=== PATIENT | male | born 1980 | race Caucasian/White ===

== ENCOUNTER 2025-01-18 11:50 | Outpatient (AMB) | payer OTHER, SELFPAY ==
--- NOTE | 2025-01-18 11:56 | A.PHYSOV ---
Vital Signs 01/18/25 11:57 Height 6 ft 2 in Weight 200 lb BMI 25.7 Intake Visit Reasons: NPV Self Ref- back pain Allergies No Known Allergies Allergy (Verified 01/18/25 12:04) HPI Comments Details: History of Present Illness The patient is a 44-year-old male presenting with lower back pain. He experienced a sudden onset of severe lower back pain while bending over, described as a hot, burning sensation that incapacitated him for two days. An MRI from 2018 revealed annular tears and an osteophyte at L5-S1 encroaching on nerve roots, but no catastrophic findings. The patient reports pain localized to the lower lumbar sacroiliac region, more pronounced on the left side. He denies any tingling or numbness but describes the pain as burning in nature. The patient has had two flare-ups in the last two months, coinciding with his return to competitive tennis. He has been undergoing physical therapy for six weeks, which has provided some relief. His pain level is currently at a 6/10, but it can become severe during flare-ups. The patient uses Tylenol and ibuprofen for pain management but has not taken them recently. He is concerned about re-aggravating his condition due to his active lifestyle. Patient does have a history of von Willebrand's disease. 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 Patient finds that his symptoms limit his ability to perform his activities of daily living. The referring provider's no prior to consultation. Pain Description - Onset: Sudden onset while bending over - Quality: Hot, burning sensation - Location: Lower lumbar sacroiliac region, left greater than right - Exacerbating factors: Physical activity, especially tennis - Relieving factors: Physical therapy - Current pain level: 6/ 10 Results - Imaging: MRI lumbar spine lumbar 09/2024 impression: No significant interval change. Chronic central disc protrusions at L3-4 and L4-5 without neural foraminal impingement. Patient does have annular fissure at L5-S1. [facility] Surgical History (Updated 01/18/25 @ 12:00 by Janessa Bird MA) H/O: knee surgery (~2022) Social History (Updated 01/18/25 @ 12:05 by Janessa Bird MA) Alcohol intake: current Alcohol intake frequency: does not drink Patient Tobacco Use Status: Never used Tobacco Review of Systems Narrative Review of Systems - Musculoskeletal: Reports neuropathic pain in lower lumbar sacroiliac region, denies tingling or numbness - Neurological: Denies tingling or numbness Physical Exam Exam Exam: Physical Exam Lumbar Spine: Examination of his lumbar spine, there is no visible swelling or deformity. He is tender to lower lumbar facets. He is otherwise nontender. Full range spine. With facet loading. Special Tests: Lhermittes sign was negative Heel Toe walk is normal Left straight leg raise: Negative Right straight leg raise: Negative Special tests Norbert test is negative Ganslen's test is negative SI Joint compression test negative Timoteo test negative Piriformis stretch is negative Lower Extremities: Full range of motion bilateral lower extremities. No calf pain or edema. Neuro: Sensation: Intact to lower extremities bilaterally Strength L2 (Psoas): 5/5 on the left and 5/5 on the right. L3 (Quads): 5/5 on the left and 5/5 on the right. L4 (Ant tibialis): 5/5 on the left and 5/5 on the right. L5 (EHL) 5/5 on the left and 5/5 on the right. S1 (Gastroc): 5/5 on the left and 5/5 on the right. DTR L4: (Patellar) Left 2 Right 2 S1: (Achilles) Left 2 Right 2 Babinski Downgoing No pathologic clonus. No involuntary movement. Vital Signs: BMI result Body Mass Index 25.7 Assessment & Plan Assessment & Plan (1) Vertebrogenic low back pain: Code(s): M54.51 - Vertebrogenic low back pain Category: Medical (2) Lumbar spondylosis: Code(s): M47.816 - Spondylosis without myelopathy or radiculopathy, lumbar region Category: Medical Plan Pain Management - Affect: Concern about re-aggravating condition due to active lifestyle - Analgesia: Uses Tylenol and ibuprofen, current pain level 2 to 3 out of 10 - Adverse Effects: None reported - Activities of Daily Living: Pain interferes with tennis and physical activity - Aberrant Drug Related Behaviors: None reported Plan Patient was informed and verbally consented to the use of an ambient scribe for clinic note documentation during this visit. 1. Annular Tears At L5-S1 The plan includes an L5-S1 interlaminar epidural injection to alleviate the annular tear and associated symptoms. The injection is expected to provide relief for three to six months, with the possibility of longer-term benefits. The procedure will be performed under local anesthesia, with precautions taken to minimize risks such as infection and nerve damage. Insurance approval is required, and the procedure will be scheduled once approved. Patient will contact his logistics solution manager to determine if he should take any medication prior to injection. He has failed conservative treatment. He will contact our office we We discussed the benefits of proper nutrition and exercise to maintain a healthy body weight to improve longevity and function. We also discussed the benefits of proper lifting techniques, core strengthening and proper posture. Thank you for allowing me to participate in the care of your patient. Coding Level of Care Code Tele New Pt Level 3 (31591) Diagnoses Vertebrogenic low back pain M54.51 Lumbar spondylosis M47.816
[2025-01-18 11:57] VITALS: BMI 25.7
== END 2025-01-18 12:20 | disposition home or self-care (01) ==
LOC: HO.HPHYS 11:50
PROVIDERS: PCP Internal Medicine; Visit Provider Physician Assistant
DX: M54.51 Vertebrogenic low back pain (principal); M47.816 Spondylosis without myelopathy or radiculopathy, lumbar region
CPT/HCPCS: 99204

== ENCOUNTER 2025-01-25 12:07 | Outpatient (REF) | payer OTHER, SELFPAY ==
--- OUTSIDE RECORDS SUMMARY | 2025-01-25 12:49 | XMS_ITS ---
Author Name [facility] Organization Unknown Encounters Encounter Type Encounter Reason Primary Diagnosis Location Date Ambulatory [facility] 01/14/2023 Care Team Organization Name Specialty Phone Email Start Date End Da te [facility] PCP,No Primary Care 01/14/2023 05/23/2024 [facility] NO PCP Primary Care 01/14/2023 01/14/2023
== END 2025-01-25 12:08 | disposition home or self-care (01) ==
LOC: HO.HPHYSR 12:07
PROVIDERS: PCP Internal Medicine; Visit Provider Physical Medicine & Rehabilitation
DX: M54.16 Radiculopathy, lumbar region (principal)
CPT/HCPCS: 62323; J2003; J3301; Q9967

== ENCOUNTER 2025-01-25 12:07 | Outpatient (AMB) | payer OTHER, SELFPAY ==
[2025-01-25 12:07] VITALS: BP 98/72; PULSE 70; BMI 25.7
--- NOTE | 2025-01-25 12:07 | A.PHYSOV ---
Vital Signs 01/25/25 12:07 Height 6 ft 2 in Weight 200 lb BMI 25.7 BP 98/72 Pulse 70 Intake Visit Reasons: Lumbar Interlaminar Epidural Injection L5-S1 Intake Note: Patient is a 44 year old male in office today L5-S1 interlaminar epidural injection. 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: No Allergies No Known Allergies Allergy (Verified 01/25/25 12:07) [facility] Medical History (Updated 01/25/25 @ 12:26 by Simon Soto DO) Lumbar radiculitis Surgical History H/O: knee surgery (~2022) Social History Alcohol intake: current Alcohol intake frequency: does not drink Patient Tobacco Use Status: Never used Tobacco Current occupational status: employed Physical Exam Vital Signs: Last Vital Signs Pulse 70 01/25/25 12:07 BP 98/72 01/25/25 12:07 BMI result Body Mass Index 25.7 Office Procedures Procedure Details: Procedure performed: L5-S1 lumbar epidural steroid injection Preop diagnosis: Lumbar radiculitis Postop diagnosis: The same After informed consent was obtained patient was brought into the procedure room and placed in the prone position on the procedure table. Skin over the lumbar sacral area was prepped and draped in usual sterile manner. L5-S1 interlaminar space was visualized utilizing fluoroscopy. After skin was anesthetized with 1% lidocaine solution, 3.5 in 20 gauge Toughy needle was introduced percutaneously and advanced toward the epidural space at the indicated level. Loss of resistance technique was utilized. Needle placement was verified utilizing 3 cc of Omnipaque contrast solution. Excellent epidural spread was visualized without evidence of vascular uptake. Total volume of 8 cc containing 2 cc of 1% lidocaine, 40 mg of triamcinolone and normal saline solution were injected after negative aspiration for blood and cerebrospinal fluid. Radiation exposure was documented in the chart. Lumbar Interlaminar Epidural 50216- use with FL Gd order: Lumbar Interlaminar Epidural Steroid Injection 23750 Procedure code (CPT) selection complete Office Meds Kenalog 40 mg/mL suspension for injection Performing Provider: Simon Soto DO Performing Location: [facility] Administered by: Simon Soto DO on 01/25/25 12:26 Dose Route Admin Location Dispensed Lot Number Expiration Date [employer] Senior Infrastructure Engineer 40 mg epidural 1 mL [id number] [employer] Total Dispensed Waste 1 mL 0 % lidocaine (PF) 10 mg/mL (1 %) injection solution Performing Provider: Simon Soto DO Performing [facility] Administered by: Simon Soto DO on 01/25/25 12:26 Dose Route Admin Location Dispensed Lot Number Expiration Date [facility] Senior Infrastructure Engineer 50 mg epidural 5 mL [id number] [facility] Total Dispensed Waste 5 mL 0 % Omnipaque 300 300 mg iodine/mL intravenous solution Performing Provider: Simon Soto DO Performing Location: [facility] Administered by: Simon Soto DO on 01/25/25 12:26 Dose Route Admin Location Dispensed Lot Number Expiration Date [facility] Senior Infrastructure Engineer 3 mL epidural 10 mL [id number] [employer] Total Dispensed Waste 10 mL 70 % Assessment & Plan Assessment & Plan (1) Lumbar radiculitis: Code(s): M54.16 - Radiculopathy, lumbar region Category: Medical Plan: Procedure Plan Procedure Orders: Orders AMB Lumbar Interlaminar Epidural Steroid Injection Today M54.16 - Radiculopathy, lumbar region FL Gd L Spine Interlaminar Inj Today M54.16 - Radiculopathy, lumbar region Coding Level of Care Code Procedure Only Diagnoses Lumbar radiculitis M54.16 CPT Codes Lumbar Interlaminar Epidural Steroid I - 50148 - Lumbar Interlaminar Epidural: Lumbar Interlaminar Epidural Steroid Injection 60063 ([id number])
--- OUTSIDE RECORDS SUMMARY | 2025-01-25 12:41 | XMS_ITS | Clinical Summary ---
Author Organization [facility] Address [address] [place] [address] Care Team Providers Care Purchasing Director Name Role Phone Elizabet Parham MD Primary Care Provider [phone] Allergies No known active allergies Medications Medication Sig Dispensed Refills Start Date End Date Status Synthroid 75 MCG tablet Take 1 tablet (75 mcg total) by mouth every morning. on an empty stomach 0 11/15/2022 Active minoxidil (LONITEN) 10 MG tablet TAKE 1 TABLET BY MOUTH EVERY DAY FOR 90 DAYS 0 01/25/2023 Active tranexamic acid (LYSTEDA) 650 MG tablet 0 02/09/2023 Active Active Problems Problem Noted Date Diagnosed Date Von Willebrand's disease 02/11/2023 Other specified hypothyroidism 02/11/2023 Social History Tobacco Use Types Packs/Day Years Used Date Smoking Tobacco: Never Assessed Sex and Gender Information Value Date Recorded Sex Assigned at Male 02/10/2023 10:36 AM EST Gender Identity Not on file Sexual Orientation Not on file Job Start Date Occupation Industry Not on file Not on file Not on file Last Filed Vital Signs Vital Sign Reading Time Taken Comments Blood Pressure 128/79 02/11/2023 9:00 AM EST Pulse 83 02/11/2023 9:00 AM EST Temperature 36.1 C (96.9 F) 02/11/2023 9:00 AM EST Respiratory Rate 18 02/11/2023 9:00 AM EST Oxygen Saturation 100% 02/11/2023 9:00 AM EST Inhaled Oxygen Concentration - - Weight 102.2 kg (225 lb 5 oz) 02/11/2023 9:00 AM EST Height - - Body Mass Index - - Plan of Treatment Health Maintenance Due Date Last Done Comments Hepatitis B Vaccines (1 of 3 - 3-dose series) 1979 Hepatitis C Screening 1979 COVID-19 Vaccine (#1) 1979 Depression Screening 1991 Preventative Health Evaluation 1997 DTap / Tdap / Td (1 - Tdap) 1998 Colon Cancer Screening (Colonoscopy) 02/14/2024 Influenza Vaccine (#1) 2024 Pneumococcal Vaccine Aged Out No long er eligible based on patient's age to complete this topic RSV Ped < 20 months Aged Out No longe r eligible based on patient's age to complete this topic Care Teams Purchasing Director Relationship Specialty Start Date End Date Elizabet Parham MD [address] [place] [id number] PCP - General Internal Medicine 02/10/23
--- OUTSIDE RECORDS SUMMARY | 2025-01-25 12:41 | XMS_ITS | Clinical Summary ---
Author Organization 175 [facility] Address [address] [place] [address] Phone Care Team Providers Care Tooth Cutter Pinion Name Role Phone Elizabet Parham MD Primary Care Provider [phone] Allergies No known active allergies Medications levothyroxine (Synthroid) 75 mcg tablet Take 1 tablet (75 mcg total) by mouth 1 (one) time each day before breakfast. 11/16/19 23 Active tranexamic acid (LYSTEDA) 650 mg tablet tablet Take 1 tablet (650 mg total) by mouth 2 (two) times a day. 02/10/20 23 Active clotrimazole-betam ethasone (LOTRISONE) 1-0.05 % cream Apply topically 2 (two) times a day. Active cefdinir (OMNICEF) 300 mg capsule Take 1 capsule (300 mg total) by mouth 2 (two) times a day. Active ondansetron ODT (ZOFRAN-ODT) 4 mg disintegrating tablet Dissolve 1 tablet (4 mg total) on top of the tongue 2 (two) times a day. Active doxycycline hyclate (VIBRA-TABS) 100 mg tablet Take 1 tablet (100 mg total) by mouth 2 (two) times a day. Take with a full glass of water and do not lie down for at least 30 minutes after. Active esomeprazole (NexIUM) [address] capsule Take 1 capsule (20 mg total) by mouth 1 (one) time each day before breakfast. Do not open capsule. Active halobetasol (ULTRAVATE) 0.05 % cream Apply topically 2 (two) times a day. Active cephalexin (KEFLEX) 500 mg capsule Take 1 capsule (500 mg total) by mouth 4 (four) times a day. Active predniSONE (DELTASONE) 20 mg tablet Take 1 tablet (20 mg total) by mouth 2 (two) times a day with meals. Active ketoconazole (NIZORAL) 2 % shampoo Apply topically 2 (two) times a week. Apply to damp skin, lather, leave on 5 minutes, and rinse Active desmopressin (STIMATE) 150 mcg/spray spray,non-aerosol (0.1 mL) nasal spray Administer into affected nostril(s) 1 (one) time. Active polyethylene glycol (Golytely) 236-22.74-6.74 -5.86 gram solution Take 4L by mouth once for one dose. May substitue any PEG. Starting at 6PM the night before your procedure drink 1 8oz glasses at your own pace until you complete half of the gallon. Finish 2nd half of the gallon 5 hours before your procedure. 4000 mL 02/23/20 24 Active bisacodyL (DULCOLAX) 5 mg EC tablet Take 2 tablets by mouth right before beginning bowel prep. See instructions provided by the office 2 tablet 02/23/20 24 Active nystatin (MYCOSTATIN) cream 01/23/20 24 Active omeprazole (PriLOSEC) [address] capsule 10/27/19 24 Active Encounters Date Type Department Care Team Description 01/09/2025 12:01 PM EST - 01/09/2025 11:59 PM EST Hospital Encounter [facility] [address] [address] [place] [address] Radiculopathy, lumbar region Discharge Disposition: Home or Self Care from Last 3 Months Surgical History Surgery Date Site/Laterality Comments KNEE ARTHROSCOPY W/ MENISCECTOMY Medical History Medical History Date Comments Mauricio's disease Social History Tobacco Use Types Packs/Day Years Used Date Smoking Tobacco: Never Smokeless Tobacco: Never Tobacco Cessation:Counseling Given: Not Answered Interpersonal Safety Answer Date Record ed Physical Abuse Unrecognized value 03/08/2024 Verbal Abuse Unrecognized value 03/08/2024 Sex and Gender Information Value Date Recorded Sex Assigned at Male 03/08/2024 8:14 AM EST Legal Sex Male 11:41 AM EST Gender Identity Not on file Sexual Orientation Not on file Obstetrics History Last Filed Vital Signs Vital Sign Reading Time Taken Comments Blood Pressure 94/68 03/08/2024 9:32 AM EST Pulse 88 03/08/2024 9:32 AM EST Temperature 36.4 C (97.6 F) 03/08/2024 9:12 AM EST Respiratory Rate 18 03/08/2024 9:32 AM EST Oxygen Saturation 100% 03/08/2024 9:32 AM EST Inhaled Oxygen Concentration - - Weight 94.3 kg (208 lb) 03/08/2024 8:16 AM EST Height 182.9 cm (6') 03/08/2024 8:16 AM EST Body Mass Index 28.21 03/08/2024 8:16 AM EST Plan of Treatment Health Maintenance Due Date Last Done Comments DTaP,Tdap,and Td Vaccines (1 - Tdap) 1998 Hepatitis B Vaccines (1 of 3 - 19+ 3-dose series) 1998 HPV Vaccines (1 - 3-dose SCD M series) 2006 HIV Screening 02/02/2022 Hepatitis C Screening 02/02/2022 Social Influencers of Health Screening 02/02/2022 Depression Screening 03/07/2024 COVID-19 Vaccine (4 - 2024-2 6 season) 2024 12/12/2020, 04/10/2020, 02/22/2020 Influenza Vaccine (#1) 2024 Cholesterol Screening (Lipid Panel) 05/15/2029 05/15/2024 Colorectal Cancer Screening: Colonoscopy 03/08/2034 03/08/2024 RSV Immunization Adult Patients (1 - 1-dose 75+ series) 2054 HIB Vaccines Aged Out No longer eligi ble based on patient's age to complete this topic Hepatitis A Vaccines Aged Out No long er eligible based on patient's age to complete this topic IPV Vaccines Aged Out No longer eligi ble based on patient's age to complete this topic MMR Vaccines Aged Out No longer eligi ble based on patient's age to complete this topic Meningococcal ACWY Vaccine Aged Out N o longer eligible based on patient's age to complete this topic Meningococcal B Vaccine Aged Out No l onger eligible based on patient's age to complete this topic Pneumococcal Vaccine: Pediatrics (0 to 5 Years) and At-Risk Patients (6 to 49 Years) Aged Out No longer eligible b ased on patient's age to complete this topic RSV Immunization Patients Under 20 months Aged Out No longer eligible b ased on patient's age to complete this topic Varicella Vaccines Aged Out No longer eligible based on patient's age to complete this topic Procedures Procedure Name Priority Date/Time Associated Diagnosis Comments XR LUMBAR SPINE 4+ VIEWS Routine 01/09/2025 12:13 PM EST Radiculopathy, lumbar region LIPID PANEL WITH REFLEX TO DIRECT LDL Routine 05/15/2024 1:08 PM EDT Routine general medical examination at a [facility] Hypothyroidism, unspecified type Vitamin D deficiency disease COLONOSCOPY Routine 03/08/2024 9:11 AM EST Colon cancer screening from Last 3 Months or Most Recently Relevant to Health Maintenance Results * XR Lumbar Spine 4+ Views (01/09/2025 12:13 PM EST) Anatomical Region Laterality Modality Spine, L-spine Radiographic Carol ging 01/09/2025 5:08 PM EST Impressions 01/09/2025 5:11 PM EST No acute abnormality. Transitional vertebra. -------- FINAL REPORT -------- Dictated By: Maxx Martinez Dictated Date: 01/09/2025 17:08 ET Assigned Physician: Maxx Martinez Reviewed and Electronically Signed By: Maxx Martinez Signed Date: 01/09/2025 17:11 ET Workstation ID: [id number] Transcribed By: Self Edit Transcribed Date: 01/09/2025 17:08 ET Narrative 01/09/2025 5:11 PM EST EXAMINATION: LUMBAR SPINE CLINICAL INFORMATION: Back pain COMPARISON: None. 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 There is a narrowed rudimentary disc in the upper sacrum. No fracture or subluxation. No suspicious focal lesion. No definite pars defect. The posterior elements in the upper sacrum are not optimally evaluated. No significant volume loss. No suspicious paraspinal abnormality. Procedure Note Maxx Martinez MD - 01/09/2025 EXAMINATION: LUMBAR SPINE CLINICAL INFORMATION: Back pain COMPARISON: None. TECHNIQUE: 5 views of the lumbar spine FINDINGS: Transitional vertebra with lumbarization at S1 with a larger lateralprocess on the left. There is a narrowed rudimentary disc in the uppersacrum. No fracture or subluxation. No suspicious focal lesion. No definite parsdefect. The posterior elements in the upper sacrum are not optimallyevaluated. No significant volume loss. No suspicious paraspinal abnormality. IMPRESSION: No acute abnormality. Transitional vertebra. -------- FINAL REPORT -------- Dictated By: Maxx Martinez Dictated Date: 01/09/2025 17:08 ET Assigned Physician: Maxx Martinez Reviewed and Electronically Signed By: Maxx Martinez Signed Date: 01/09/2025 17:11 ET Workstation ID: [id number] Transcribed By: Self Edit Transcribed Date: 01/09/2025 17:08 ET us Lilian [facility] IMG XR PROCEDURES Final R esult * Lipid panel with reflex to direct LDL (05/15/2024 1:08 PM EDT) Cholesterol 145 0 - 200 mg/dL LAB CHEMISTRY METHOD 05/15/2024 2:16 PM EDT [facility] Triglycerides 51 0 - 150 mg/dL LAB CHEMISTRY METHOD 05/15/2024 2:16 PM EDT [facility] HDL 40 >=40 mg/dL LAB CHEMISTRY METHOD 05/15/2024 2:16 PM EDT [facility] LDL Calculated 95 0 - 100 mg/dL LAB CHEMISTRY METHOD 05/15/2024 2:16 PM EDT [facility] VLDL Cholesterol Norman 10.2 mg/dL LAB CHEMISTRY METHOD 05/15/2024 2:16 PM EDT [facility] Non HDL Chol. (LDL+VLDL) 105 <145 mg/dL LAB CHEMISTRY METHOD 05/15/2024 2:16 PM EDT [facility] Chol/HDL Ratio 3.6 0.0 - 4.4 LAB CHEMISTRY METHOD 05/15/2024 2:16 PM EDT [facility] Blood Venous blood specimen / Unknown Venipuncture / Unknown 05/15/2024 1:08 PM EDT 05/15/2024 1:29 PM EDT Elizabet Parham MD LAB BLOOD ORDERABLES Final Resul t [facility] [address] [place] [address], * COLONOSCOPY Anesthesia - MAC; [facility] ENDOSCOPY (03/08/2024 9:11 AM EST) Anatomical Region Laterality Modality Endoscopy 03/08/2024 8:55 AM EST Impressions 03/08/2024 9:13 AM EST - Internal hemorrhoids. - The examination was otherwise normal. - No specimens collected. Recommendation: - Discharge patient to home. - Repeat colonoscopy in 10 years for screening purposes. Narrative 03/08/2024 9:13 AM EST [facility] GI Patient Name: Marlen Richmond Procedure Date: 03/08/2024 8:55 AM Date of : 1980 Age: 44 Gender: Male Note Status: Finalized Attending MD: Ruben Almeida MD, Procedure Date No Time: 03/08/2024 Procedure: Colonoscopy Indications: Screening for colorectal malignant neoplasm Providers: Ruben Almeida MD Referring MD: Elizabet Parham MD Medicines: Monitored Anesthesia Care Complications: No immediate complications. Estimated Blood Loss: Estimated blood loss: none. Procedure: Pre-Anesthesia Assessment: - Prior to the procedure, a History and Physical was performed, and patient medications and allergies were reviewed. The patient is competent. The risks and benefits of the procedure and the sedation options and risks were discussed with the patient. All questions were answered and informed consent was obtained. Patient identification and proposed procedure were verified by the physician, the nurse, the pcas and the master fire control technician in the pre-procedure area in the endoscopy suite. Mental Status Examination: alert and oriented. Airway Examination: normal oropharyngeal airway and neck mobility. Respiratory Examination: clear to auscultation. CV Examination: normal. Prophylactic Antibiotics: The patient does not require prophylactic antibiotics. Prior Anticoagulants: The patient has taken no anticoagulant or antiplatelet agents. ASA Grade Assessment: I - A normal, healthy patient. After reviewing the risks and benefits, the patient was deemed in satisfactory condition to undergo the procedure. The anesthesia plan was to use monitored anesthesia care (MAC). Immediately prior to administration of medications, the patient was re-assessed for adequacy to receive sedatives. The heart rate, respiratory rate, oxygen saturations, blood pressure, adequacy of pulmonary ventilation, and response to care were monitored throughout the procedure. The physical status of the patient was re-assessed after the procedure. After I obtained informed consent, the scope was passed under direct vision. Throughout the procedure, the patient's blood pressure, pulse, and oxygen saturations were monitored continuously. The Olympus Colonoscope was introduced through the anus and advanced to the terminal ileum. The colonoscopy was performed without difficulty. The patient tolerated the procedure well. The quality of the bowel preparation was good. Findings: The perianal and digital rectal examinations were normal. Internal hemorrhoids were found during retroflexion. The hemorrhoids were Grade I (internal hemorrhoids that do not prolapse). The exam was otherwise without abnormality. Procedure Code(s): --- Professional --- G0121, Colorectal cancer screening; colonoscopy on individual not meeting criteria for high risk Diagnosis Code(s): --- Professional --- Z12.11, Encounter for screening for malignant neoplasm of colon CPT copyright 2020 [employer]. All rights reserved. The codes documented in this report are preliminary and upon nuclear weapons custodian review may be revised to meet current compliance requirements. Ruben Almeida MD 03/08/2024 9:13:34 AM This report has been signed electronically.Ruben Almeida MD Number of Addenda: 0 Note Initiated On: 03/08/2024 8:55 AM Scope Withdrawal Time: 0 hours 8 minutes 3 seconds Scope In: 9:00:16 AM Scope Out: 9:10:48 AM Endoscopy Department at [facility] - [address] [place] [id number] Procedure Note Ruben Almeida MD - 03/08/2024 [facility] GI Patient Name: Marlen Richmond Procedure Date: 03/08/2024 8:55 AM Date of : 1980 Age: 44 Gender: Male Note Status: Finalized Attending MD: Ruben Almeida MD, Procedure Date No Time: 03/08/2024 Procedure: Colonoscopy Indications: Screening for colorectal malignant neoplasm Providers: Ruben Almeida MD Referring MD: Elizabet Parham MD Medicines: Monitored Anesthesia Care Complications: No immediate complications. Estimated Blood Loss: Estimated blood loss: none. Procedure: Pre-Anesthesia Assessment: - Prior to the procedure, a History and Physicalwas performed, and patient medications and allergieswere reviewed. The patient is competent. The risks and benefits of the procedure and the sedation optionsand risks were discussed with the patient. Allquestions were answered and informed consent was obtained. Patient identification and proposed procedure were verified by the physician, the nurse, theanesthetist and the master fire control technician in the pre-procedure area in the endoscopy suite. Mental Status Examination: alertand oriented. Airway Examination: normal oropharyngeal airway and neck mobility. Respiratory Examination: clear to auscultation. CV Examination: normal. Prophylactic Antibiotics: The patient does notrequire prophylactic antibiotics. Prior Anticoagulants: The patient has taken no anticoagulant or antiplatelet agents. ASA Grade Assessment: I - A normal, healthy patient. After reviewing the risks and benefits,the patient was deemed in satisfactory condition to undergo the procedure. The anesthesia plan was touse monitored anesthesia care (MAC). Immediately priorto administration of medications, the patient was re-assessed for adequacy to receive sedatives. The heart rate, respiratory rate, oxygen saturations, blood pressure, adequacy of pulmonary ventilation,and response to care were monitored throughout the procedure. The physical status of the patient was re-assessed after the procedure. After I obtained informed consent, the scope was passed under direct vision. Throughout theprocedure, the patient's blood pressure, pulse, and oxygen saturations were monitored continuously. TheOlympus Colonoscope was introduced through the anus and advanced to the terminal ileum. The colonoscopy was performed without difficulty. The patient tolerated the procedure well. The quality of the bowel preparation was good. Findings: The perianal and digital rectal examinations were normal. Internal hemorrhoids were found duringretroflexion. The hemorrhoids were Grade I (internal hemorrhoids that do not prolapse). The exam was otherwise without abnormality. Procedure Code(s): --- Professional --- G0121, Colorectal cancer screening; colonoscopy on individual not meeting criteria for high risk Diagnosis Code(s): --- Professional --- Z12.11, Encounter for screening for malignantneoplasm of colon CPT copyright 2020 [employer]. All rights reserved. The codes documented in this report are preliminary and upon nuclear weapons custodian reviewmay be revised to meet current compliance requirements. Ruben Almeida MD 03/08/2024 9:13:34 AM This report has been signed electronically.Ruben Almeida MD Number of Addenda: 0 Note Initiated On: 03/08/2024 8:55 AM Scope Withdrawal Time: 0 hours 8 minutes 3 seconds Scope In: 9:00:16 AM Scope Out: 9:10:48 AM Endoscopy Department at [address] [id number] IMPRESSION: - Internal hemorrhoids. - The examination was otherwise normal. - No specimens collected. Recommendation: - Discharge patient to home. - Repeat colonoscopy in 10 years for screening purposes. Ruben Almeida MD GI~PROCEDURE ORDERABLES Fin al Result from Last 3 Months or Most Recently Relevant to Health Maintenance Insurance [facility] Care Teams Tooth Cutter Pinion Relationship Specialty Start Date End Date Elizabet Parham MD [address] [place] [id number] PCP - General Internal Medicine 05/15/24
--- OUTSIDE RECORDS SUMMARY | 2025-01-25 12:41 | XMS_ITS | Patient Health Record ---
Author Organization [facility] [address] Address [address] [place] [address] Care Team Providers Care Leadership Program Intern Name Role Phone ISAMAR DIAZ Primary Care Provider MARLEN RICHMOND Unavailable [phone] MARIA TERESACAR HAWTHORNE Unavailable [phone] Results Component Value Reference Range Flag Notes THYROXINE TOTAL Reviewed date:05/16/2024 09:22:31 AM Interpretation: Performing Lab: Notes/Report: T4, Total 9.4 4.5-10.9 mcg/dL URINALYSIS WITH REFLEX MICRO SCOPIC Reviewed date:05/16/2024 09:22:31 AM Interpretation: Performing Lab: Notes/Report: Specific [place] Urine 1.026 1.003-1.030 pH, Urine 5.0 5.0-8.0 pH Leukocytes, Urine Negative Negative Nitrite, Urine Negative Negative Protein, Urine Negative <=Trace mg/dL Glucose, Urine Negative Negative mg/dL Ketones, Urine Negative Negative mg/dL Urobilinogen, Urine 0.2 0.2-1.0 mg/dL Bilirubin, Urine Negative Negative Blood, Urine Negative Negative COMPREHENSIVE METABOLIC PANE L Reviewed date:05/16/2024 09:46:46 AM Interpretation: Performing Lab: Notes/Report: Sodium 140 133-145 mmol/L Potassium 4.3 3.5-5.5 mmol/L Chloride 108 96-110 mmol/L CO2 26 21-32 mmol/L Anion Gap 6 3-11 Glucose 94 70-100 mg/dL BUN 21 5-25 mg/dL Creatinine 1.10 0.70-1.30 mg/dL eGFR 84 >=60 mL/min/1.73m2 Calculation based on the Chronic Kidney Disease Epidemiology Collaboration (CKD-EPI) equation refit without adjustment for race. BUN/Creatinine Ratio 19.1 Calcium 9.4 8.5-10.5 mg/dL AST (SGOT) 35 10-42 unit/L ALT (SGPT) 30 10-60 unit/L Alkaline Phosphatase 68 42-121 unit/L Total Protein 8.1 6.0-8.0 g/dL H Albumin 4.0 3.2-5.0 g/dL Total Bilirubin 0.3 0.0-1.4 mg/dL THYROID STIMULATING HORMONE Reviewed date:05/16/2024 09:22:31 AM Interpretation: Performing Lab: Notes/Report: TSH 2.71 0.40-4.00 mcIU/mL VITAMIN D 25 HYDROXY Reviewed date:05/16/2024 09:23:23 AM Interpretation: Performing Lab: Notes/Report: Vit D, 25-Hydroxy 65.9 30.0-80.0 ng/mL LIPID PANEL WITH REFLEX TO D IRECT LDL Reviewed date:05/16/2024 09:22:31 AM Interpretation: Performing Lab: Notes/Report: Cholesterol 145 0-200 mg/dL Triglycerides 51 0-150 mg/dL HDL 40 >=40 mg/dL LDL Calculated 95 0-100 mg/dL VLDL Cholesterol Norman 10.2 Non HDL Chol. (LDL+VLDL) 105 <145 mg/dL Chol/HDL Ratio 3.6 0.0-4.4 XR LUMBAR SPINE 4+ VIEWS Reviewed date:01/10/2025 09:41:23 AM Interpretation: Performing Lab: Notes/Report: Note See Note [facility], a member of [employer] Patient Name: MARLEN RICHMOND Date of : 1980 Reason for Exam: back pain Exam Date: 01/09/2025 [id number] EST Report Status: Final Ordering Provider: CAR MORGAN PCP: ISAMAR DIAZ EXAMINATION: LUMBAR SPINE CLINICAL INFORMATION: Back pain COMPARISON: None. 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 There is a narrowed rudimentary disc in the upper sacrum. No fracture or subluxation. No suspicious focal lesion. No definite pars defect. The posterior elements in the upper sacrum are not optimally evaluated. No significant volume loss. No suspicious paraspinal abnormality. IMPRESSION: No acute abnormality . Transitional vertebra. -------- FINAL REPOR T -------- Dictated By: Maxx Ward Dictated Date: 01/09/2025 17:08 ET Assigned Physician: Maxx Martinez Reviewed and Electronically Signed By: Maxx Martinez Signed Date: 01/09/2025 17:11 ET Workstation ID: [id number] Transcribed By: Self Edit Transcribed Date: 01/09/2025 17:08 ET CBC WITH AUTO DIFFERENTIAL Reviewed date:05/18/2024 08:37:00 AM Interpretation: Performing Lab: Notes/Report: WBC 3.9 4.8-10.8 K/mcL L RBC 4.90 4.50-5.50 M/mcL Hemoglobin 14.0 13.5-17.5 g/dL Hematocrit 41.5 42.0-54.0 % L MCV 85.4 79.0-98.0 FL MCH 28.8 27.0-32.0 pcg MCHC 33.7 32.0-37.0 g/dL RDW 13.0 11.0-15.0 % Platelets 183 130-400 K/mcL MPV 9.5 7.0-11.0 FL NRBC 0.0 <1.0 % NRBC Absolute 0.00 <0.10 K/mcL Neutrophils Relative 39.8 Lymphocytes Relative 49.6 Monocytes Relative 9.0 Eosinophils Relative 1.0 Basophils Relative 0.3 Immature Granulocytes Relative 0.3 Neutrophils Absolute 1.55 1.50-7.00 K/mcL Lymphocytes Absolute 1.93 1.00-5.00 K/mcL Monocytes Absolute 0.35 0.20-1.00 K/mcL Eosinophils Absolute 0.04 0.00-0.50 K/mcL Basophils Absolute 0.01 0.00-0.20 K/mcL Immature Granulocytes Absolute 0.01 0.00-0.03 K/mcL Reason For Referral No Information Medications Medication SIG (Take, Route, Frequency, Duration) Notes Start Date End Date Status Synthroid 75 MCG Tablet 1 tablet on an e mpty stomach in the morning (Trade name only) no subs Orally Once a day; Duration: 90 days Active Clotrimazole-Betamethasone 1-0.05 % Cream 1 application Externally Twice a day; Duration: 30 days 08/16/2023 Active Minoxidil 10 MG Tablet 1 tablet Orally O nce a day; Duration: 90 days 08/06/2022 Active Ondansetron 4 MG Tablet Disintegrating 1 tablet on the tongue and allow to dissolve prn nausea/vomiting Orally Once a day; Duration: 30 days 07/04/2023 Active Ketoconazole 2 % Shampoo USE 5 ML DIR ECTED, APPLY AND LATHER AND LET SIT FOR 5 MINS THEN RINSE EXTERNALLY EVERY OTHER DAY 30 DAYS; Duration: 30 Active Nystatin [id number] UNIT/GM Cream 1 application Externally Twice a day; Duration: 30 days 01/23/2024 Active Omeprazole 20 MG Capsule Delayed Release 1 capsule 30 minutes before morning meal Orally Once a day; Duration: 90 days 10/27/2023 Active Doxycycline Hyclate 100 MG Capsule 1 capsule Orally twice a day; Duration: 10 day(s) 01/04/2023 Active Cephalexin 500 MG Capsule 1 capsule Oral ly every 6 hrs; Duration: 7 days 10/11/2023 Active Tranexamic Acid 650 MG Tablet 2 tablets Orally three times a day; Duration: 5 days 12/30/2022 Active predniSONE 20 MG Tablet 2 tablets with f ood or milk Orally Once a day; Duration: 7 days 02/23/2023 Active Desmopressin Acetate 1.5 MG/ML Solution 1 actuation in each nare Nasally once; Duration: 30 days 06/16/2023 Active Cefdinir 300 MG Capsule 1 capsule Orally twice a day; Duration: 5 days 08/23/2022 Active Desmopressin Acetate 1.5 MG/ML Solution 1 spray in each nare, Prior to procedure as directed Nasally once; Duration: 30 days 01/26/2023 Active Finasteride 1 MG Tablet TAKE ONE TABLET BY MOUTH ONCE DAILY; Duration: 100 Active Ondansetron 4 MG Tablet Disintegrating 1 tablet on the tongue and allow to dissolve prn nausea Orally twice a day; Duration: 14 days 08/13/2022 Active Halobetasol Propionate 0.05 % Cream 1 application Externally Twice a day; Duration: 30 days 02/26/2022 Active Zepbound 10 MG/0.5ML Solution Auto-injector 10mg Subcutaneous weekly; Duration: 30 days 12/31/2024 Active NexIUM 20 MG Capsule Delayed Release 1 capsule (trade name only, no substitutions) Orally Once a day; Duration: 30 day(s) 05/27/2022 Active predniSONE 10 MG Tablet Take 5 tablets d aily for 2 days and then decrease by 1 tab every 2 days until complete Orally Once a day; Duration: 10 days Active Zepbound 5 MG/0.5ML Solution Auto-injector 5mg weekly Subcutaneous weekly; Duration: 90 days 10/29/2024 Active Clobetasol Propionate 0.05 % Cream 1 application Externally Twice a day; Duration: 30 days 02/26/2022 Active Zepbound 7.5 MG/0.5ML Solution Auto-injector 7.5mg Subcutaneous weekly; Duration: 90 days 11/17/2024 Active Zepbound 5 MG/0.5ML Solution Auto-injector 5mg weekly Subcutaneous weekly; Duration: 30 days 10/11/2024 Active Mounjaro 5 MG/0.5ML Solution Auto-injector 5mg Subcutaneous weekly; Duration: 28 days 10/12/2024 Active Social History Tobacco Use: Social History Observation Description Date Details (start date - stop date) Never Smoker NA - NA Social History Tobacco Use: Social Info Question Answer Notes Tobacco Use/Smoking Are you a nonsmoker Additional Details Category Social Info Options Details Drugs/Alcohol: Do you smoke marijuana? De nies Do you drink alcohol? No Section Notes: Occassional Cigar smoking. Occassional Cigar smoking. Problems Problem Type SNOMED Code ICD Code Onset Dates Problem Status W/U Status Risk Notes Problem Hypothyroidism (03719483) Hypothyroidism, unspecified (E03.9) Active confirmed Problem Hyperlipidemia (73531725) Hyperlipidemia, unspecified (E78.5) Active confirmed Problem Sciatica (94032178) Lumbago with sciatica, left side (M54.42) Active confirmed Problem Colon cancer screening (227504029) Colon cancer screening (Z12.11) Active confirmed Problem Vitamin D deficiency (96876979) Vitamin D deficiency (E55.9) Active confirmed Problem Tuberculosis screening (236888274) Tuberculosis screening (Z11.1) Active confirmed Problem Obstructive sleep apnea syndrome (68108233) SATINDER (obstructive sleep apnea) (G47.33) Active confirmed Problem Obesity (440213447) Obesity (BMI 30-39.9) (E66.9) Active confirmed Problem Lumbar radiculopathy (021074745) Lumbar radiculopathy (M54.16) Active confirmed Problem Male infertility (4840398) Infertility male (N46.9) Active confirmed Vital Signs Heart Rate 70 /min 01/09/2025 Oximetry 98 % 01/09/2025 Blood pressure diastolic 80 mm Hg 01/09/2025 Height 72 in 01/09/2025 Blood pressure systolic 120 mm Hg 01/09/2025 Encounters Encounter Location Date Provider Diagnosis [facility] [address] [place] [address] 01/09/2025 CAR MORGAN Lumbar radiculopathy M54.16 ; Lumbago with sciatica, left side M54.42 and Encounter for examination of blood pressure without abnormal findings Z01.30 [facility] [address] [place] [address] 02/27/2024 TALAL DIAZ [facility] [address] [place] [address] 04/02/2024 TALAL DIAZ [facility] [address] [place] [address] 04/08/2024 TALAL DIAZ [facility] [address] [place] [address] 05/15/2024 TALAL DIAZ Adult general medica l exam Z00.00 ; Hypothyroidism, unspecified E03.9 and Vitamin D deficiency E55.9 [facility] [address] [place], [place] 07/15/2024 TALAL DIAZ [facility] [address] [place] [address] 07/26/2024 TALAL DIAZ [facility] [address] [place] [address] 08/15/2024 TALAL DIAZ [facility] [address] [place] [address] 08/15/2024 TALAL DIAZ [facility] [address] [place] [address] 08/15/2024 TALAL DIAZ [facility] [address] [place] [address] 08/15/2024 TALAL DIAZ [facility] [address] [place] [address] 10/11/2024 MARLEN BORHOT [facility] [address] [address] 10/12/2024 MARLEN BORHOT [facility] [address] [address] 10/29/2024 MARLEN BORHOT [facility] [address] [address] 11/17/2024 MARLEN BORHOT [facility] [address] [address] 12/31/2024 MARLEN BORHOT [facility] [address] [address] 12/31/2024 MARLEN BORHOT [facility] [address] [address] 01/09/2025 TALLUDWIN DIAZ [facility] [address] [address] 01/23/2025 TALAL DIAZ [facility] [address] [address] 01/23/2025 MARLEN RAMÓN Assessments Encounter Date Diagnosis (ICD Code) Assessment Notes Treatment Notes Treatment Clinical Notes Section Notes 05/15/2024 Hypothyroidism, unspecified (ICD-10 - E03.9) 05/15/2024 Adult general medical exam (ICD-10 - Z00.00) 01/09/2025 Lumbago with sciatica, left side (ICD-10 - M54.42) Patient is on continued PT Minimal response Lumbar spine films Will get lumbar spine MRI to rule out discogenic causes, Last MRI findings as per [facility] back in 2018 Of note, some information is being carried forward from prior records for informational purposes only and is being cited so that efficiency, safety and quality of the patient's care is not compromised This note was prepared using voice recognition software and direct typing Please excuse inadvertent rail director or typing errors, or uncorrected word substitutions Although every attempt has been made by the provider to proofread this document, occasional misspellings and typographical errors may still be present Due to the previous pandemic, and the use of personal protective equipment (PPE) This may decrease voice recognition accuracy Inadvertent rail director errors may occur 01/09/2025 Lumbar radiculopathy (ICD-10 - M54.16) Patient is on continued PT Minimal response Lumbar spine films Will get lumbar spine MRI to rule out discogenic causes, Last MRI findings as per [facility] back in 2018 Of note, some information is being carried forward from prior records for informational purposes only and is being cited so that efficiency, safety and quality of the patient's care is not compromised This note was prepared using voice recognition software and direct typing Please excuse inadvertent rail director or typing errors, or uncorrected word substitutions Although every attempt has been made by the provider to proofread this document, occasional misspellings and typographical errors may still be present Due to the previous pandemic, and the use of personal protective equipment (PPE) This may decrease voice recognition accuracy Inadvertent rail director errors may occur 01/09/2025 Encounter for examination of blood pressure without abnormal findings (ICD-10 - Z01.30) Patient is on continued PT Minimal response Lumbar spine films Will get lumbar spine MRI to rule out discogenic causes, Last MRI findings as per HPI back in 2018 Of note, some information is being carried forward from prior records for informational purposes only and is being cited so that efficiency, safety and quality of the patient's care is not compromised This note was prepared using voice recognition software and direct typing Please excuse inadvertent rail director or typing errors, or uncorrected word substitutions Although every attempt has been made by the provider to proofread this document, occasional misspellings and typographical errors may still be present Due to the previous pandemic, and the use of personal protective equipment (PPE) This may decrease voice recognition accuracy Inadvertent rail director errors may occur 05/15/2024 Vitamin D deficiency (ICD-10 - E55.9) Plan Of Treatment Pending Test Test Name Order Date MRI : Lumbar without contrast 01/09/2025 25OH VITAMIN D 11/13/2019 CBC (COMPLETE BLOOD COUNT) 11/13/2019 COMPREHENSIVE METABOLIC PANEL 11/13/2019 HEMOGLOBIN A1C 11/13/2019 INSULIN 11/13/2019 LIPID PANEL 11/13/2019 SEMEN ANALYSIS 03/09/2023 T4, FREE 11/13/2019 TSH 11/13/2019 URINALYSIS, COMPLETE 11/13/2019 Comprehensive Metabolic Panel 05/15/2024 Lipid Panel 05/15/2024 URINALYSIS 05/15/2024 TSH 05/15/2024 TOTAL T4 05/15/2024 LIPID PANEL, STANDARD 04/26/2023 COMPREHENSIVE METABOLIC PANEL 04/26/2023 CBC (INCLUDES DIFF/PLT) 04/26/2023 CBC (INCLUDES DIFF/PLT) 05/15/2024 URINALYSIS, COMPLETE 04/26/2023 T4 (THYROXINE), TOTAL 04/26/2023 TSH 04/26/2023 QUANTIFERON TB GOLD PLUS 04/08/2021 Lumbar Spine 2 or 3 Views 01/09/2025 COVID-19 (NOVEL CORONAVIRUS), RNA 2019 Future Test Test Name Order Date Thyroid Peroxidase (TPO) Ab 06/23/2021 25OH VITAMIN D 06/23/2021 CBC (COMPLETE BLOOD COUNT) WITH DIFF COMPREHENSIVE METABOLIC PANEL 06/23/2021 HEMOGLOBIN A1C 06/23/2021 LIPID PANEL 06/23/2021 TSH WITH REFLEX TO FT4 06/23/2021 URINALYSIS W/REFLEX CULTURE 06/23/2021 Thyroglobulin Antibody 06/23/2021 Insurance Providers Payer Name Payer Address Payer Phone Subscriber Number Group Number Insured Name Patient Relationship to Insured Coverage Start Date Coverage End Date [employer] [address] [place] [id number] Marlen Richmond Self - patient is the insured Medical (General) History Medical History History ICD Code Mauricio's Disease Surgical History Surgery Date(Month/Year) septoplasty right knee meniscus repair 2012
== END 2025-01-25 12:41 | disposition home or self-care (01) ==
LOC: HO.HPHYS 12:07
PROVIDERS: PCP Internal Medicine; Visit Provider Physical Medicine & Rehabilitation
DX: M54.16 Radiculopathy, lumbar region (principal)
CPT/HCPCS: 62323